=== PATIENT | male | born 1930 | race Caucasian/White ===

== ENCOUNTER 2017-04-07 06:07 | Observation (INO) ==
[2017-04-07] MEDS ORDERED: POTASSIUM CHLORIDE RIDER 10 MEQ in PREMIX 1 EACH IV PRN (08:12)
[2017-04-07] MEDS ORDERED: diphenhydrAMINE CAP 25 MG CAPSULE PO ONE (08:12)
[2017-04-07] MEDS ORDERED: DIAZEPAM 5 MG TABLET PO ONE (08:12)
[2017-04-07] MEDS ORDERED: MAGNESIUM SULF RIDER 2 GM in PREMIX 1 EACH IV PRN (08:12)
[2017-04-07] MEDS ORDERED: ASPIRIN 325 MG TABLET PO ONE (08:12)
[2017-04-07] MEDS ORDERED: DIAZEPAM 5 MG TABLET ONE (08:43)
[2017-04-07] MEDS ORDERED: diphenhydrAMINE CAP 25 MG CAPSULE ONE (08:44)
[2017-04-07] MEDS: SODIUM CHLORIDE 0.45% 1,000 ML IV SCH ×2 (08:50→18:10)
[2017-04-07] MEDS ORDERED: HEPARIN/NACL 0.9% 2 UNITS/ML 2,000 ML IV ONE (09:26)
[2017-04-07] MEDS ORDERED: LIDOCAINE 1% 20 ML VIAL ONE (09:26)
[2017-04-07] MEDS ORDERED: MIDAZOLAM 2 MG/2 ML VIAL ONE (09:34)
[2017-04-07] MEDS ORDERED: fentaNYL 100 MCG/2 ML VIAL ONE (09:34)
[2017-04-07] MEDS ORDERED: BIVALIRUDIN 250 MG VIAL IV ONE (10:18)
[2017-04-07] MEDS ORDERED: CLOPIDOGREL 300 MG TABLET ONE (11:05)
[2017-04-07] MEDS ORDERED: NITROGLYCERIN SL 0.4 MG TABLET SL PRN (11:21)
[2017-04-07] MEDS ORDERED: ACETAMINOPHEN 325 MG TABLET PO PRN (11:23)
[2017-04-07] MEDS ORDERED: MORPHINE 2 MG/1 ML SYRINGE IV PRN (11:23)
[2017-04-07] MEDS ORDERED: ONDANSETRON 4 MG/2 ML VIAL IV PRN (11:23)
[2017-04-07] MEDS ORDERED: ACETAMINOPHEN/CODEINE 300-30 MG TABLET PO PRN (11:23)
[2017-04-07] MEDS: INSULIN REGULAR 100 UNIT/ML SUBCUT SCH (21:05)
[2017-04-08] MEDS: SODIUM CHLORIDE 0.45% 1,000 ML IV SCH ×2 (04:42→09:03)
[2017-04-08 05:13] LABS: Basophils # 0.1 10*3/uL (0.0-0.2); Basophils % 0.4 % (0.0-0.8); Eosinophils % 0.1 % (0.00-10.9); Hematocrit 43.2 VOL% (42.0-52.0); Hemoglobin 15.4 GM/DL (14.0-18.0); Immature Granulocytes % 0.6 %; Immature Granulocytes Absolute 0.07 #; Lymphocytes # 0.7 10*3/uL (1.4-4.0); Lymphocytes % 6.1 % (21.2-54.2); Mean Corpuscular HGB Conc 35.6 GM/DL (32-36); Mean Corpuscular Hemoglobin 33 PG (27-34); Mean Corpuscular Volume 92.9 FL (87-102); Mean Platelet Volume 9.7 FL (9.6-12.0); Monocytes # 0.7 10*3/uL (0.11-0.8); Monocytes % 6.3 % (1.7-12.7); Neutrophils # 9.9 10*3/uL (1.4-7.4); Neutrophils % 86.5 % (38.7-73.9); Platelet Count 277 T/CUMM (130-400); Red Blood Count 4.65 MC/CUMM (3.8-5.5); Red Cell Distribution Width 12.8 % (9.3-17.3); White Blood Count 11.4 T/CUMM (4-12)
[2017-04-08 05:26] LABS: Calcium 8.6 MG/DL (8.5-10.1); Potassium 3.9 MMOL/L (3.5-5.1)
[2017-04-08 05:27] LABS: Calcium 9.1 MG/DL (8.5-10.1)
[2017-04-08 05:58] LABS: Platelet Estimate Normal
[2017-04-08] MEDS: ISOSORBIDE MONONITRATE 30 MG TABLET PO SCH (09:04)
[2017-04-08] MEDS: amLODIPine 5 MG TABLET PO SCH (09:05)
[2017-04-08] MEDS: CLOPIDOGREL 75 MG TABLET PO SCH (09:05)
[2017-04-08] MEDS: ASPIRIN EC 81 MG TABLET PO SCH (09:06)
[2017-04-08] MEDS: INSULIN REGULAR 100 UNIT/ML SUBCUT SCH ×4 (09:06→22:26)
[2017-04-08] MEDS: METOPROLOL SUCCINATE XL 100 MG TABLET PO SCH (09:06)
[2017-04-08 12:28] LABS: Apearance,Urine Slightly Hazy (Clear); Bacteria,Urine Moderate /HPF (Few); Bilirubin,Urine Negative (Negative); Blood, Urine Moderate mg/dL (Negative); Glucose,Urine (UA) 150 mg/dL (Negative); Ketones,Urine 5 mg/dL (Negative); Mucus,Urine Occasional /LPF (Occasional); Nitrite,Urine Negative (Negative); Protein,Urine 30 MG/DL; RBC,Urine 10 /HPF (0-4); Squamous Epithelial Cell,Urine Occasional /HPF (0-10); Urine Color Yellow (Yellow); Urine Specific Gravity 1.025 (1.001-1.035); Urine Urobilinogen < 2.0 EU/DL (0.2-1.0); WBC,Urine 26 /HPF (0-6)
[2017-04-08] MEDS: TAMSULOSIN 0.4 MG CAPSULE PO SCH (22:26)
[2017-04-09] MEDS: INSULIN REGULAR 100 UNIT/ML SUBCUT SCH ×4 (08:08→21:14)
[2017-04-09] MEDS: ISOSORBIDE MONONITRATE 30 MG TABLET PO SCH (08:57)
[2017-04-09] MEDS: METOPROLOL SUCCINATE XL 100 MG TABLET PO SCH (08:57)
[2017-04-09] MEDS: TAMSULOSIN 0.4 MG CAPSULE PO SCH ×2 (08:57→21:14)
[2017-04-09] MEDS: amLODIPine 5 MG TABLET PO SCH (08:57)
[2017-04-09] MEDS: CLOPIDOGREL 75 MG TABLET PO SCH (08:57)
[2017-04-09] MEDS: ASPIRIN EC 81 MG TABLET PO SCH (08:57)
[2017-04-09] MEDS ORDERED: TAMSULOSIN 0.4 MG CAPSULE PO ONE (10:00)
[2017-04-09 11:11] LABS: Basophils # 0.1 10*3/uL (0.0-0.2); Basophils % 0.5 % (0.0-0.8); Eosinophils # 0.1 10*3/uL (0.0-0.87); Eosinophils % 0.8 % (0.00-10.9); Hematocrit 38.9 VOL% (42.0-52.0); Hemoglobin 13.9 GM/DL (14.0-18.0); Immature Granulocytes % 0.5 %; Immature Granulocytes Absolute 0.05 #; Lymphocytes # 0.8 10*3/uL (1.4-4.0); Lymphocytes % 8.2 % (21.2-54.2); Mean Corpuscular HGB Conc 35.7 GM/DL (32-36); Mean Corpuscular Hemoglobin 33 PG (27-34); Mean Corpuscular Volume 93.5 FL (87-102); Mean Platelet Volume 9.8 FL (9.6-12.0); Monocytes # 0.9 10*3/uL (0.11-0.8); Monocytes % 8.7 % (1.7-12.7); Neutrophils # 8.3 10*3/uL (1.4-7.4); Neutrophils % 81.3 % (38.7-73.9); Platelet Count 245 T/CUMM (130-400); Red Blood Count 4.16 MC/CUMM (3.8-5.5); Red Cell Distribution Width 13.1 % (9.3-17.3); White Blood Count 10.2 T/CUMM (4-12)
[2017-04-09 11:44] LABS: Calcium 8.4 MG/DL (8.5-10.1); Osmolality,Calculated 284.7 MOS/KG (273-304); Potassium 4.1 MMOL/L (3.5-5.1)
[2017-04-09] MEDS: AMOXICILLIN 875 MG TABLET PO SCH ×2 (12:36→21:14)
[2017-04-10 05:32] LABS: Basophils # 0.1 10*3/uL (0.0-0.2); Basophils % 0.6 % (0.0-0.8); Eosinophils # 0.1 10*3/uL (0.0-0.87); Eosinophils % 0.8 % (0.00-10.9); Hematocrit 37.8 VOL% (42.0-52.0); Hemoglobin 13.5 GM/DL (14.0-18.0); Immature Granulocytes % 0.7 %; Immature Granulocytes Absolute 0.06 #; Lymphocytes # 0.8 10*3/uL (1.4-4.0); Lymphocytes % 9.6 % (21.2-54.2); Mean Corpuscular HGB Conc 35.7 GM/DL (32-36); Mean Corpuscular Hemoglobin 33 PG (27-34); Monocytes # 0.8 10*3/uL (0.11-0.8); Monocytes % 9.5 % (1.7-12.7); Neutrophils # 6.9 10*3/uL (1.4-7.4); Neutrophils % 78.8 % (38.7-73.9); Platelet Count 237 T/CUMM (130-400); Red Blood Count 4.11 MC/CUMM (3.8-5.5); White Blood Count 8.7 T/CUMM (4-12)
[2017-04-10 05:43] LABS: Calcium 8.5 MG/DL (8.5-10.1); Osmolality,Calculated 280.4 MOS/KG (273-304); Potassium 3.7 MMOL/L (3.5-5.1)
[2017-04-10] MEDS: INSULIN REGULAR 100 UNIT/ML SUBCUT SCH ×3 (08:40→16:21)
[2017-04-10] MEDS: METOPROLOL SUCCINATE XL 100 MG TABLET PO SCH (09:14)
[2017-04-10] MEDS: ASPIRIN EC 81 MG TABLET PO SCH (09:14)
[2017-04-10] MEDS: CLOPIDOGREL 75 MG TABLET PO SCH (09:14)
[2017-04-10] MEDS: AMOXICILLIN 875 MG TABLET PO SCH ×2 (09:14→21:36)
[2017-04-10] MEDS: ISOSORBIDE MONONITRATE 30 MG TABLET PO SCH (09:14)
[2017-04-10] MEDS: amLODIPine 5 MG TABLET PO SCH (09:14)
[2017-04-10] MEDS: TAMSULOSIN 0.4 MG CAPSULE PO SCH (21:36)
[2017-04-11] MEDS: INSULIN REGULAR 100 UNIT/ML SUBCUT SCH ×3 (00:56→12:07)
[2017-04-11 04:08] LABS: Basophils # 0.1 10*3/uL (0.0-0.2); Basophils % 1.3 % (0.0-0.8); Eosinophils # 0.1 10*3/uL (0.0-0.87); Eosinophils % 1.7 % (0.00-10.9); Hematocrit 37.6 VOL% (42.0-52.0); Hemoglobin 13.3 GM/DL (14.0-18.0); Immature Granulocytes % 0.7 %; Immature Granulocytes Absolute 0.04 #; Lymphocytes # 1.1 10*3/uL (1.4-4.0); Lymphocytes % 20.7 % (21.2-54.2); Mean Corpuscular HGB Conc 35.4 GM/DL (32-36); Mean Corpuscular Hemoglobin 33 PG (27-34); Mean Corpuscular Volume 91.9 FL (87-102); Monocytes # 0.6 10*3/uL (0.11-0.8); Monocytes % 11.8 % (1.7-12.7); Neutrophils # 3.5 10*3/uL (1.4-7.4); Neutrophils % 63.8 % (38.7-73.9); Platelet Count 224 T/CUMM (130-400); Red Blood Count 4.09 MC/CUMM (3.8-5.5); Red Cell Distribution Width 12.8 % (9.3-17.3); White Blood Count 5.4 T/CUMM (4-12)
[2017-04-11 04:31] LABS: Calcium 8.3 MG/DL (8.5-10.1); Osmolality,Calculated 274.8 MOS/KG (273-304); Potassium 4.2 MMOL/L (3.5-5.1)
[2017-04-11] MEDS: AMOXICILLIN 875 MG TABLET PO SCH (08:43)
[2017-04-11] MEDS: CLOPIDOGREL 75 MG TABLET PO SCH (08:43)
[2017-04-11] MEDS: ASPIRIN EC 81 MG TABLET PO SCH (08:43)
[2017-04-11] MEDS: amLODIPine 5 MG TABLET PO SCH (08:44)
[2017-04-11] MEDS: METOPROLOL SUCCINATE XL 100 MG TABLET PO SCH (08:44)
[2017-04-11] MEDS: ISOSORBIDE MONONITRATE 30 MG TABLET PO SCH (08:44)
[2017-04-11 11:44] VITALS: BP 112/71
[2017-04-11] MEDS ORDERED: SIMVASTATIN 10 MG TABLET PO SCH (21:00)
== END 2017-04-11 13:02 | disposition home or self-care (01) ==
LOC: N.CC 06:07 → N.CL 06:07 → N.CC 11:01 → N.TELES 04-08 16:39
PROVIDERS: ADMIT Internal Medicine Cardiovascular Disease; ATTEND Internal Medicine Cardiovascular Disease

== ENCOUNTER 2019-01-21 17:28 | Inpatient (IN) ==
[2019-01-21] MEDS ORDERED: ONDANSETRON 4 MG/2 ML VIAL IV STA (18:07)
[2019-01-21] MEDS ORDERED: SODIUM CHLORIDE 0.9% 500 ML IV STA (18:07)
[2019-01-21 18:32] LABS: Basophils % 0.3 % (0.0-0.8); Eosinophils % 0.6 % (0.00-10.9); Hematocrit 32.6 VOL% (42.0-52.0); Hemoglobin 10.8 GM/DL (14.0-18.0); Immature Granulocytes % 0.5 %; Immature Granulocytes Absolute 0.03 #; Lymphocytes # 0.3 10*3/uL (1.4-4.0); Lymphocytes % 5.1 % (21.2-54.2); Mean Corpuscular HGB Conc 33.1 GM/DL (32-36); Mean Corpuscular Volume 99.4 FL (87-102); Mean Platelet Volume 9.7 FL (9.6-12.0); Monocytes % 7.1 % (1.7-12.7); Neutrophils % 86.4 % (38.7-73.9); Platelet Count 149 T/CUMM (130-400); Red Blood Count 3.28 MC/CUMM (3.8-5.5); Red Cell Distribution Width 13.1 % (9.3-17.3); White Blood Count 6.2 T/CUMM (4-12)
[2019-01-21 18:52] LABS: Albumin 3.3 G/DL (3.4-5.0); Bilirubin,Total 0.6 MG/DL (0.2-1.0); Calcium 8.3 MG/DL (8.5-10.1); Osmolality,Calculated 296.5 MOS/KG (273-304)
[2019-01-21 18:59] LABS: Apearance,Urine Slightly Hazy (Clear); Bacteria,Urine Many /HPF (Few); Bilirubin,Urine Negative (Negative); Blood, Urine Small mg/dL (Negative); Glucose,Urine (UA) Negative (Negative); Ketones,Urine Negative (Negative); Mucus,Urine Occasional /LPF (Occasional); Nitrite,Urine Negative (Negative); Protein,Urine Negative; RBC,Urine 7 /HPF (0-4); Squamous Epithelial Cell,Urine Occasional /HPF (0-10); Urine Color Yellow (Yellow); Urine Urobilinogen < 2.0 EU/DL (0.2-1.0); WBC,Urine 33 /HPF (0-6)
[2019-01-21] MEDS ORDERED: SODIUM CHLORIDE 0.9% 1,000 ML IV STA (19:24)
[2019-01-21] MEDS ORDERED: SODIUM POLYSTYRENE SULFATE 15 GM/60 ML BOTTLE PO STA (19:24)
[2019-01-21] MEDS ORDERED: CALCIUM CHLORIDE 1,000 MG/10 ML SYRINGE IV STA (19:24)
[2019-01-21] MEDS ORDERED: cefTRIAXone 1,000 MG in SODIUM CHLORIDE 0.9% 100 ML IV STA (19:25)
[2019-01-21] MEDS ORDERED: SODIUM BICARBONATE 50 MEQ/50 ML VIAL IV STA (19:26)
[2019-01-21] MEDS ORDERED: DEXTROSE 50% 25 GM/50 ML VIAL IV PRN (21:53)
[2019-01-21] MEDS ORDERED: ACETAMINOPHEN 325 MG TABLET PO PRN (21:53)
[2019-01-21] MEDS ORDERED: GLUCAGON 1 MG VIAL IM PRN (21:53)
[2019-01-21] MEDS ORDERED: MORPHINE 4 MG/1 ML VIAL IV PRN (21:53)
[2019-01-21] MEDS ORDERED: ONDANSETRON 4 MG/2 ML VIAL IV PRN (21:53)
[2019-01-21] MEDS ORDERED: NITROGLYCERIN SL 0.4 MG TABLET SL PRN (21:53)
[2019-01-21] MEDS: SODIUM CHLORIDE 0.9% 1,000 ML IV SCH (22:24)
[2019-01-21] MEDS: TAMSULOSIN 0.4 MG CAPSULE PO SCH (22:38)
[2019-01-21] MEDS: DOCUSATE SODIUM 100 MG CAPSULE PO SCH (22:39)
[2019-01-21] MEDS: SODIUM POLYSTYRENE SULFATE 15 GM/60 ML BOTTLE PO SCH (22:39)
[2019-01-22] MEDS: INSULIN REGULAR 100 UNIT/ML SUBCUT SCH ×5 (01:32→23:49)
[2019-01-22] MEDS ORDERED: INFLUENZA VIRUS VACCINE 0.5 ML SYRINGE IM ONE (01:41)
[2019-01-22 04:42] LABS: Basophils % 0.4 % (0.0-0.8); Eosinophils # 0.2 10*3/uL (0.0-0.87); Eosinophils % 2.3 % (0.00-10.9); Hematocrit 30.1 VOL% (42.0-52.0); Immature Granulocytes % 0.6 %; Immature Granulocytes Absolute 0.04 #; Lymphocytes # 0.5 10*3/uL (1.4-4.0); Lymphocytes % 7.5 % (21.2-54.2); Mean Corpuscular HGB Conc 33.2 GM/DL (32-36); Mean Platelet Volume 9.8 FL (9.6-12.0); Monocytes % 10.9 % (1.7-12.7); Neutrophils % 78.3 % (38.7-73.9); Platelet Count 130 T/CUMM (130-400); Red Blood Count 3.04 MC/CUMM (3.8-5.5); Red Cell Distribution Width 13.1 % (9.3-17.3); White Blood Count 7.1 T/CUMM (4-12)
[2019-01-22 05:08] LABS: Albumin 2.9 G/DL (3.4-5.0); Bilirubin,Total 1.2 MG/DL (0.2-1.0); Osmolality,Calculated 298.8 MOS/KG (273-304); Total Protein 5.5 G/DL (6.4-8.3)
[2019-01-22] MEDS: SODIUM POLYSTYRENE SULFATE 15 GM/60 ML BOTTLE PO SCH ×2 (05:37→09:15)
[2019-01-22] MEDS: SODIUM CHLORIDE 0.9% 1,000 ML IV SCH ×3 (06:17→21:52)
[2019-01-22] MEDS: PANTOPRAZOLE 40 MG VIAL IV SCH (09:14)
[2019-01-22] MEDS: TAMSULOSIN 0.4 MG CAPSULE PO SCH ×2 (09:16→21:51)
[2019-01-22] MEDS: ASPIRIN EC 81 MG TABLET PO SCH (09:16)
[2019-01-22] MEDS: DOCUSATE SODIUM 100 MG CAPSULE PO SCH ×2 (09:17→21:52)
[2019-01-22] MEDS: FINASTERIDE 5 MG TABLET PO SCH (09:17)
[2019-01-22] MEDS: amLODIPine 5 MG TABLET PO SCH (09:17)
[2019-01-22] MEDS: METOPROLOL SUCCINATE XL 25 MG TABLET PO SCH (09:17)
[2019-01-22] MEDS: cefTRIAXone 1,000 MG in SYRINGE 1 EACH IV SCH (21:52)
[2019-01-23 05:15] LABS: Calcium 7.7 MG/DL (8.5-10.1); Osmolality,Calculated 288.1 MOS/KG (273-304)
[2019-01-23] MEDS: INSULIN REGULAR 100 UNIT/ML SUBCUT SCH ×4 (05:33→23:34)
[2019-01-23] MEDS: SODIUM CHLORIDE 0.9% 1,000 ML IV SCH ×2 (06:57→18:43)
[2019-01-23] MEDS: FINASTERIDE 5 MG TABLET PO SCH (08:59)
[2019-01-23] MEDS: amLODIPine 5 MG TABLET PO SCH (08:59)
[2019-01-23] MEDS: DOCUSATE SODIUM 100 MG CAPSULE PO SCH ×2 (08:59→21:07)
[2019-01-23] MEDS: TAMSULOSIN 0.4 MG CAPSULE PO SCH ×2 (08:59→21:07)
[2019-01-23] MEDS: ASPIRIN EC 81 MG TABLET PO SCH (09:00)
[2019-01-23] MEDS: PANTOPRAZOLE 40 MG VIAL IV SCH (09:00)
[2019-01-23] MEDS: METOPROLOL SUCCINATE XL 25 MG TABLET PO SCH (09:00)
[2019-01-23] MEDS: cefTRIAXone 1,000 MG in SYRINGE 1 EACH IV SCH (21:07)
[2019-01-24] MEDS: INSULIN REGULAR 100 UNIT/ML SUBCUT SCH ×4 (05:30→23:46)
[2019-01-24 06:23] LABS: Calcium 7.4 MG/DL (8.5-10.1); Osmolality,Calculated 289.3 MOS/KG (273-304)
[2019-01-24] MEDS: FINASTERIDE 5 MG TABLET PO SCH (09:40)
[2019-01-24] MEDS: METOPROLOL SUCCINATE XL 25 MG TABLET PO SCH (09:40)
[2019-01-24] MEDS: DOCUSATE SODIUM 100 MG CAPSULE PO SCH ×2 (09:40→21:45)
[2019-01-24] MEDS: TAMSULOSIN 0.4 MG CAPSULE PO SCH ×2 (09:40→21:45)
[2019-01-24] MEDS: SODIUM CHLORIDE 0.9% 1,000 ML IV SCH (09:41)
[2019-01-24] MEDS: ASPIRIN EC 81 MG TABLET PO SCH (09:41)
[2019-01-24] MEDS: amLODIPine 5 MG TABLET PO SCH (09:41)
[2019-01-24] MEDS: PANTOPRAZOLE 40 MG VIAL IV SCH (09:42)
[2019-01-24] MEDS: cefTRIAXone 1,000 MG in SYRINGE 1 EACH IV SCH (21:45)
[2019-01-25] MEDS: SODIUM CHLORIDE 0.9% 1,000 ML IV SCH ×2 (06:23→08:44)
[2019-01-25] MEDS: INSULIN REGULAR 100 UNIT/ML SUBCUT SCH ×2 (06:23→13:02)
[2019-01-25] MEDS: ASPIRIN EC 81 MG TABLET PO SCH (08:45)
[2019-01-25] MEDS: METOPROLOL SUCCINATE XL 25 MG TABLET PO SCH (08:45)
[2019-01-25] MEDS: TAMSULOSIN 0.4 MG CAPSULE PO SCH (08:45)
[2019-01-25] MEDS: DOCUSATE SODIUM 100 MG CAPSULE PO SCH (08:45)
[2019-01-25] MEDS: FINASTERIDE 5 MG TABLET PO SCH (08:45)
[2019-01-25] MEDS: amLODIPine 5 MG TABLET PO SCH (08:45)
[2019-01-25] MEDS: PANTOPRAZOLE 40 MG VIAL IV SCH (08:46)
[2019-01-25] MEDS ORDERED: MAGNESIUM SULF RIDER 2 GM in PREMIX 1 EACH IV ONE (09:33)
[2019-01-25] MEDS ORDERED: MAGNESIUM CHLORIDE 64 MG TABLET PO SCH (10:00)
[2019-01-25 11:55] VITALS: BP 113/71
== END 2019-01-25 14:40 | disposition home health service (06) | DRG 683 ==
LOC: EDBD → EDUNIT# → N.ED 17:28 → N.EDINP 19:38 → N.TELES 20:43
PROVIDERS: ADMIT Family Medicine; ATTEND Family Medicine

== ENCOUNTER 2019-05-28 16:00 | Inpatient (IN) ==
[2019-05-28] MEDS ORDERED: fentaNYL 100 MCG/2 ML VIAL IV STA (16:22)
[2019-05-28] MEDS ORDERED: ONDANSETRON 4 MG/2 ML VIAL IV STA (16:22)
[2019-05-28 16:59] LABS: Basophils # 0.1 10*3/uL (0.0-0.2); Basophils % 0.4 % (0.0-0.8); Eosinophils # 0.1 10*3/uL (0.0-0.87); Hemoglobin 12.7 GM/DL (14.0-18.0); Immature Granulocytes % 0.6 %; Immature Granulocytes Absolute 0.07 #; Lymphocytes # 0.7 10*3/uL (1.4-4.0); Mean Corpuscular HGB Conc 33.4 GM/DL (32-36); Mean Corpuscular Volume 96.2 FL (87-102); Monocytes % 5.7 % (1.7-12.7); Neutrophils % 86.3 % (38.7-73.9); Platelet Count 140 T/CUMM (130-400); Red Blood Count 3.95 MC/CUMM (3.8-5.5); White Blood Count 11.1 T/CUMM (4-12)
[2019-05-28 17:14] LABS: Partial Thromboplastin Time 28.3 SECS (23.9-33.8)
[2019-05-28 17:18] LABS: Alanine Aminotransferase 13 U/L (16-61); Albumin 3.4 G/DL (3.4-5.0); Alkaline Phosphatase 112 U/L (45-117); Aspartate Amino Transferase 12 U/L (0-37); Blood Urea Nitrogen 17 MG/DL (7-18); Calcium 9.2 MG/DL (8.5-10.1); Estimated Glom Filtration Rate 48 ML/MIN; Glucose 210 MG/DL (74-106); Total Protein 6.6 G/DL (6.4-8.3); Troponin I < 0.015 NG/ML (0.00-0.045)
[2019-05-28] MEDS ORDERED: GLUCAGON 1 MG VIAL IM PRN (18:16)
[2019-05-28] MEDS ORDERED: ONDANSETRON 4 MG/2 ML VIAL IV PRN (18:16)
[2019-05-28] MEDS ORDERED: DEXTROSE 10% 250 ML BAG IV PRN (18:16)
[2019-05-28] MEDS ORDERED: hydrALAZINE 20 MG/1 ML VIAL IV PRN (18:18)
[2019-05-28] MEDS: fentaNYL 100 MCG/2 ML VIAL IV PRN ×2 (19:53→22:54)
[2019-05-28] MEDS: INSULIN REGULAR 100 UNIT/ML SUBCUT SCH (20:35)
[2019-05-28 23:32] LABS: Apearance,Urine Slightly Hazy (Clear); Bacteria,Urine Occasional /HPF (Few); Bilirubin,Urine Negative (Negative); Blood, Urine Moderate mg/dL (Negative); Glucose,Urine (UA) >=500 mg/dL (Negative); Ketones,Urine 5 mg/dL (Negative); Mucus,Urine Occasional /LPF (Occasional); Nitrite,Urine Positive (Negative); Protein,Urine 30 MG/DL; RBC,Urine 14 /HPF (0-4); Squamous Epithelial Cell,Urine Occasional /HPF (0-10); Urine Color Yellow (Yellow); Urine Specific Gravity 1.011 (1.001-1.035); Urine Urobilinogen < 2.0 EU/DL (0.2-1.0); WBC,Urine 145 /HPF (0-6)
[2019-05-29] MEDS: fentaNYL 100 MCG/2 ML VIAL IV PRN ×2 (03:37→05:50)
[2019-05-29] MEDS ORDERED: BUPIVACAINE SPINAL 0.75% 2 ML AMP SPINAL ONE (07:03)
[2019-05-29] MEDS ORDERED: BUPIVACAINE MPF 0.25% 30 ML VIAL ONE ×2 (07:03→07:06)
[2019-05-29] MEDS ORDERED: ceFAZolin 2,000 MG in PREMIX 1 EACH IV ONE (07:11)
[2019-05-29] MEDS: INSULIN REGULAR 100 UNIT/ML SUBCUT SCH ×4 (07:59→22:50)
[2019-05-29] MEDS ORDERED: BISACODYL 10 MG SUPP RECTAL PRN (09:05)
[2019-05-29] MEDS ORDERED: PROMETHAZINE 25 MG/1 ML VIAL IM PRN (09:05)
[2019-05-29] MEDS ORDERED: MAGNESIUM HYDROXIDE SUSP 30 ML UDCUP PO PRN (09:05)
[2019-05-29] MEDS ORDERED: diphenhydrAMINE CAP 25 MG CAPSULE PO PRN (09:05)
[2019-05-29] MEDS ORDERED: LACTULOSE 20 GM/30 ML UDCUP PO PRN (09:05)
[2019-05-29] MEDS ORDERED: MORPHINE 4 MG/1 ML VIAL IV PRN ×2 (09:05→09:25)
[2019-05-29] MEDS ORDERED: NITROGLYCERIN SL 0.4 MG TABLET SL PRN (09:09)
[2019-05-29 09:27] LABS: Apearance,Urine Slightly Hazy (Clear); Bacteria,Urine Occasional /HPF (Few); Bilirubin,Urine Negative (Negative); Blood, Urine Small mg/dL (Negative); Glucose,Urine (UA) 50 mg/dL (Negative); Ketones,Urine 5 mg/dL (Negative); Nitrite,Urine Positive (Negative); Protein,Urine Negative; RBC,Urine 10 /HPF (0-4); Urine Color Yellow (Yellow); Urine Specific Gravity 1.013 (1.001-1.035); Urine Urobilinogen < 2.0 EU/DL (0.2-1.0); WBC,Urine 73 /HPF (0-6)
[2019-05-29] MEDS ORDERED: propofoL 200 MG/20 ML VIAL IV ONE (09:46)
[2019-05-29] MEDS ORDERED: KETAMINE 500 MG/10 ML VIAL ONE (09:46)
[2019-05-29] MEDS ORDERED: MIDAZOLAM 2 MG/2 ML VIAL ONE (09:47)
[2019-05-29] MEDS ORDERED: fentaNYL 100 MCG/2 ML VIAL ONE (09:47)
[2019-05-29] MEDS ORDERED: PHENYLEPHRINE 1 MG/10 ML SYRINGE IV ONE (09:47)
[2019-05-29] MEDS ORDERED: METOPROLOL SUCCINATE XL 50 MG TABLET PO ONE (14:23)
[2019-05-29] MEDS: LACTATED RINGERS 1,000 ML IV SCH (14:46)
[2019-05-29] MEDS: ceFAZolin 1,000 MG in SYRINGE 1 EACH IV SCH ×2 (16:39→23:22)
[2019-05-29] MEDS: FONDAPARINUX 2.5 MG/0.5 ML SYRINGE SUBCUT SCH (22:04)
[2019-05-29] MEDS: TAMSULOSIN 0.4 MG CAPSULE PO SCH (22:04)
[2019-05-29] MEDS: KETOROLAC 15 MG/1 ML VIAL IV PRN (22:05)
[2019-05-30 06:11] LABS: Calcium 8.6 MG/DL (8.5-10.1); Osmolality,Calculated 279.1 MOS/KG (273-304)
[2019-05-30 06:28] LABS: Basophils % 0.2 % (0.0-0.8); Eosinophils % 0.1 % (0.00-10.9); Hematocrit 32.3 VOL% (42.0-52.0); Immature Granulocytes % 0.3 %; Immature Granulocytes Absolute 0.03 #; Lymphocytes # 0.7 10*3/uL (1.4-4.0); Lymphocytes % 7.1 % (21.2-54.2); Mean Corpuscular HGB Conc 33.1 GM/DL (32-36); Mean Corpuscular Volume 97.9 FL (87-102); Mean Platelet Volume 10.4 FL (9.6-12.0); Monocytes % 10.3 % (1.7-12.7); Platelet Count 127 T/CUMM (130-400); Red Cell Distribution Width 13.2 % (9.3-17.3); White Blood Count 9.9 T/CUMM (4-12)
[2019-05-30 06:30] LABS: Hemoglobin 10.7 GM/DL (14.0-18.0)
[2019-05-30] MEDS: ceFAZolin 1,000 MG in SYRINGE 1 EACH IV SCH (09:11)
[2019-05-30] MEDS: INSULIN REGULAR 100 UNIT/ML SUBCUT SCH ×4 (09:12→22:06)
[2019-05-30] MEDS: ASPIRIN EC 81 MG TABLET PO SCH (09:12)
[2019-05-30] MEDS: amLODIPine 5 MG TABLET PO SCH (09:13)
[2019-05-30] MEDS: FINASTERIDE 5 MG TABLET PO SCH (09:13)
[2019-05-30] MEDS: metFORMIN 500 MG TABLET PO SCH (09:13)
[2019-05-30] MEDS: TAMSULOSIN 0.4 MG CAPSULE PO SCH ×2 (09:13→21:05)
[2019-05-30] MEDS: METOPROLOL SUCCINATE XL 50 MG TABLET PO SCH (09:14)
[2019-05-30] MEDS: MAGNESIUM CHLORIDE 64 MG TABLET PO SCH (09:14)
[2019-05-30] MEDS: KETOROLAC 15 MG/1 ML VIAL IV PRN (09:15)
[2019-05-30] MEDS ORDERED: cefTRIAXone 1,000 MG in SYRINGE 1 EACH IV ONE (12:00)
[2019-05-30] MEDS: LACTATED RINGERS 1,000 ML IV SCH (14:52)
[2019-05-30] MEDS: FONDAPARINUX 2.5 MG/0.5 ML SYRINGE SUBCUT SCH (21:05)
[2019-05-31 07:39] VITALS: BP 99/64
[2019-05-31] MEDS: LACTATED RINGERS 1,000 ML IV SCH (07:50)
[2019-05-31] MEDS: INSULIN REGULAR 100 UNIT/ML SUBCUT SCH ×2 (08:08→14:22)
[2019-05-31] MEDS: TAMSULOSIN 0.4 MG CAPSULE PO SCH (08:09)
[2019-05-31] MEDS: metFORMIN 500 MG TABLET PO SCH (08:09)
[2019-05-31] MEDS: ASPIRIN EC 81 MG TABLET PO SCH (08:09)
[2019-05-31] MEDS: MAGNESIUM CHLORIDE 64 MG TABLET PO SCH (08:09)
[2019-05-31] MEDS: FINASTERIDE 5 MG TABLET PO SCH (08:10)
[2019-05-31] MEDS: amLODIPine 5 MG TABLET PO SCH (08:11)
[2019-05-31] MEDS: METOPROLOL SUCCINATE XL 50 MG TABLET PO SCH (08:18)
== END 2019-05-31 11:33 | disposition swing bed (61) | DRG 480 ==
LOC: EDBD → EDUNIT# → N.ED 16:00 → N.EDINP 18:13 → N.3E 18:41
PROVIDERS: ADMIT Family Medicine; ATTEND Family Medicine